=== PATIENT | female | born 1980 | race Two or more races ===

== ENCOUNTER 2016-07-19 17:29 | Inpatient (IN) | payer OTHER ==
[~2016-07-19] VITALS: Ht 152.4 cm; Wt 81.8 kg
[~2016-07-19 17:29] MED LIST: IBUP-1222 PO; OXYC-302 PO
[2016-07-19 18:05] VITALS: BP 183/103
[2016-07-19] MEDS ORDERED: LEVO75TA PO (18:12)
[2016-07-19] MEDS ORDERED: LABE100T3 PO (18:12)
[2016-07-19 18:29] LABS: BLOOD UREA NITROGEN 17 mg/dL (7-18)
[2016-07-19 18:33] LABS: ASPARTATE AMINO TRANSFERASE 161 U/L (15-37)
[2016-07-19] MEDS ORDERED: MAGNESIUM SULF. PMX 20GM/500ML 500 ML IV ONE (18:52)
[2016-07-19] MEDS ORDERED: MAGNESIUM SULFATE PMX 4GM/100M 100 ML ONE (18:53)
[2016-07-19] MEDS ORDERED: MAGNESIUM SULFATE PMX 4GM/100M 100 ML IVPB ONE (19:00)
[2016-07-19] MEDS ORDERED: OXYcodone/APAP 5/325MG TABLET PO PRN (19:00)
[2016-07-19] MEDS: LACTATED RINGERS 1,000 ML IV PRN (19:04)
[2016-07-19 19:32] VITALS: BP 163/86
[2016-07-19] MEDS ORDERED: OXYcodone/APAP 5/325MG TABLET ONE (19:49)
[2016-07-19] MEDS ORDERED: DOCUSATE 100 MG CAPSULE ONE (19:50)
[2016-07-19] MEDS: MAGNESIUM SULF. PMX 20GM/500ML 500 ML IV PRN (19:53)
[2016-07-19] MEDS: OXYcodone/APAP 5/325MG TABLET PO PRN (19:56)
[2016-07-20] VITALS: BP 142/82
[2016-07-20] MEDS ORDERED: OXYcodone/APAP 5/325MG TABLET ONE ×2 (03:14→11:20)
[2016-07-20] MEDS: OXYcodone/APAP 5/325MG TABLET PO PRN ×2 (03:16→11:22)
[2016-07-20] MEDS ORDERED: MAGNESIUM SULF. PMX 20GM/500ML 500 ML IV ONE ×2 (05:00→16:02)
[2016-07-20] MEDS: LACTATED RINGERS 1,000 ML IV PRN ×2 (05:08→18:48)
[2016-07-20] MEDS: MAGNESIUM SULF. PMX 20GM/500ML 500 ML IV PRN ×2 (05:10→16:07)
[2016-07-20] MEDS ORDERED: LABETALOL 100 MG TABLET ONE ×2 (06:58→18:12)
[2016-07-20] MEDS ORDERED: DOCUSATE 100 MG CAPSULE ONE ×2 (06:59→22:01)
[2016-07-20] MEDS: DOCUSATE 50 MG/5 ML, 10ML UDC PO PRN ×2 (07:03→22:08)
[2016-07-20 07:10] VITALS: BP 173/89
[2016-07-20 07:15] LABS: BLOOD UREA NITROGEN 12 mg/dL (7-18)
[2016-07-20 07:18] LABS: ASPARTATE AMINO TRANSFERASE 209 U/L (15-37)
[2016-07-20] MEDS ORDERED: LABETALOL 100 MG TABLET PO SCH (08:00)
[2016-07-20] MEDS: niFEDipine ER 30 MG TABLET.ER PO SCH (08:04)
[2016-07-20] MEDS ORDERED: IBUPROFEN 600 MG TABLET ONE (15:46)
[2016-07-20] MEDS: IBUPROFEN 600 MG TABLET PO PRN (15:50)
[2016-07-20] MEDS: LABETALOL 100 MG TABLET PO SCH (18:18)
[2016-07-21] MEDS ORDERED: MAGNESIUM SULF. PMX 20GM/500ML 500 ML IV ONE (02:45)
[2016-07-21] MEDS: MAGNESIUM SULF. PMX 20GM/500ML 500 ML IV PRN (02:50)
[2016-07-21 05:59] LABS: BLOOD UREA NITROGEN 12 mg/dL (7-18)
[2016-07-21 06:09] LABS: ASPARTATE AMINO TRANSFERASE 123 U/L (15-37)
[2016-07-21 07:30] VITALS: BP 159/76
[2016-07-21] MEDS: LABETALOL 100 MG TABLET PO SCH (08:01)
[2016-07-21] MEDS: LACTATED RINGERS 1,000 ML IV PRN (08:13)
[2016-07-21] MEDS ORDERED: LABETALOL 200 MG TABLET PO SCH (08:18)
[2016-07-21] MEDS ORDERED: PRENATAL VIT/IRON/FA 1 EACH TABLET ONE (09:01)
[2016-07-21] MEDS: niFEDipine ER 30 MG TABLET.ER PO SCH (09:05)
[2016-07-21] MEDS ORDERED: IBUPROFEN 600 MG TABLET ONE (09:44)
[2016-07-21] MEDS: IBUPROFEN 600 MG TABLET PO PRN (09:46)
[2016-07-21] MEDS ORDERED: OXYcodone/APAP 5/325MG TABLET ONE (13:22)
[2016-07-21] MEDS: OXYcodone/APAP 5/325MG TABLET PO PRN (13:24)
[2016-07-21] MEDS ORDERED: NIFE30TA15 PO (18:48)
[2016-07-21] MEDS ORDERED: LABE200T3 PO (18:49)
[2016-07-21] MEDS ORDERED: DOCUSATE 100 MG CAPSULE PO SCH (21:00)
[2016-07-22] MEDS ORDERED: PRENATAL VIT/IRON/FA 1 EACH TABLET PO SCH (09:00)
== END 2016-07-21 19:12 | disposition home or self-care (01) | DRG 776 ==
LOC: LDOP 17:29 → LDIP 18:50
PROVIDERS: ADMIT Obstetrics & Gynecology; ATTEND Obstetrics & Gynecology
PROC: 0T9B70Z Drainage of Bladder with Drainage Device, Via Natural or Artificial Opening (ICD-10-PCS; principal; 2016-07-19)
DX: O10.93 Unspecified pre-existing hypertension complicating the puerperium (principal); E28.2 Polycystic ovarian syndrome; K08.409 Partial loss of teeth, unspecified cause, unspecified class; O13.5 Gestational [pregnancy-induced] hypertension without significant proteinuria, complicating the puerperium; Z98.51 Tubal ligation status; Z91.048 Other nonmedicinal substance allergy status
CPT/HCPCS: 36415; 80053; 81003; 82570; 83735; 84156; 84550; 85025; J3475; J7120

== ENCOUNTER → 2020-02-05 | Outpatient (CLI) | payer OTHER ==
[~2020-02-05] MED LIST changes: +ASCO100018 PO; +CALC200T3 PO; +CHOL10003 PO; +LABE100T6 PO; +LABE200T6 PO; +LEVO75TA PO; +LORA10TA75 PO; +MULT-516 PO; +NIFE-7 PO; +OLME20TA17 PO
[2020-02-05 11:50] LABS: BASOPHILS % (AUTO) 1 % (0-1); EOSINOPHILS % (AUTO) 2 % (1-7); LYMPHOCYTES % (AUTO) 37 % (22-44); MEAN CORPUSCULAR HEMOGLOBIN 28.7 pg (27.0-34.8); MEAN CORPUSCULAR HGB CONC 32.8 g/dL (32.4-35.8); MEAN PLATELET VOLUME 7.9 fL (7.4-10.4); MONOCYTES % (AUTO) 9 % (2-9); NEUTROPHILS % (AUTO) 52 % (42-75); PLATELET COUNT 315 x10^3/uL (130-400); RED BLOOD COUNT 4.73 x10^6/uL (3.82-5.3); RED CELL DISTRIBUTION WIDTH 13.2 % (9.6-15.2)
[2020-02-05 11:53] LABS: MD NO
[2020-02-05 11:55] LABS: ALBUMIN 3.9 g/dL (3.4-5.0); ANION GAP 4 mmol/L (5-15); CALCIUM 9.1 mg/dL (8.5-10.1); CHLORIDE 105 mmol/L (98-107); CREATININE 1.04 mg/dL (0.55-1.02)
[2020-02-05 12:00] LABS: ALANINE AMINOTRANSFERASE 17 U/L (12-78); ALKALINE PHOSPHATASE 80 U/L (45-117); BILIRUBIN,TOTAL 0.4 mg/dL (0.2-1.0); TOTAL PROTEIN 8.7 g/dL (6.4-8.2)
[2020-02-05 12:08] LABS: HCG UR SG 1.018 (1.003-1.030); MICROSCOPIC NOT IND
== END | disposition home or self-care (01) ==
LOC: STAR 10:13
PROVIDERS: ATTEND Obstetrics & Gynecology
DX: Z01.812 Encounter for preprocedural laboratory examination (principal); Z20.828 Contact with and (suspected) exposure to other viral communicable diseases; Q89.8 Other specified congenital malformations
CPT/HCPCS: 36415; 80053; 81003; 81025; 85025; 87635

== ENCOUNTER 2020-02-09 05:33 | Day surgery (SDC) | payer OTHER ==
[~2020-02-09] VITALS: Ht 154.9 cm; Wt 87.0 kg
[2020-02-09 06:27] VITALS: BP 148/96
[2020-02-09] MEDS ORDERED: ACETAMINOPHEN 500 MG TABLET PO ONE (06:30)
[2020-02-09] MEDS ORDERED: LACTATED RINGERS 1,000 ML IV SCH (06:30)
[2020-02-09] MEDS ORDERED: CHLORHEXIDINE 15 ML UDC MM ONE (06:30)
[2020-02-09] MEDS ORDERED: LIDOCAINE-MPF 1%, 2ML INFIL ONE (06:30)
[2020-02-09 06:49] LABS: HCG UR SG 1.025 (1.003-1.030)
[2020-02-09] MEDS ORDERED: EPINEPHRINE 1 MG/ML, 1ML ONE (06:56)
[2020-02-09] MEDS ORDERED: BUPIVACAINE/PF 0.25% ONE (06:56)
[2020-02-09] MEDS ORDERED: BUPIVACAINE/PF 0.5% ONE (06:56)
[2020-02-09] MEDS ORDERED: MIDAZOLAM 1 MG/ML, 2ML ONE (07:09)
[2020-02-09] MEDS ORDERED: FENTANYL PF 100 MCG/2ML ONE (07:10)
[2020-02-09] MEDS ORDERED: DIPHENHYDRAMINE 50 MG/ML, 1ML IVPush PRN (07:30)
[2020-02-09] MEDS ORDERED: HYDROmorphone 1 MG/ML, 1ML INJ IVPush PRN (07:30)
[2020-02-09] MEDS ORDERED: LABETALOL 5MG/ML, 20ML IV PRN (07:30)
[2020-02-09] MEDS ORDERED: HYDROcodone/APAP 7.5-325MG/15ML UDC PO PRN (07:30)
[2020-02-09] MEDS ORDERED: hydrALAzine 20 MG/ML, 1ML IV PRN (07:30)
[2020-02-09] MEDS ORDERED: PROMETHAZINE 25 MG/ML, 1ML IVPush PRN (07:30)
[2020-02-09] MEDS ORDERED: MEPERIDINE/PF 25MG/0.5ML IVPush PRN (07:30)
[2020-02-09] MEDS ORDERED: FENTANYL PF 100 MCG/2ML IV PRN (07:30)
[2020-02-09] MEDS ORDERED: HALOPERIDOL 5 MG/ML IV PRN (07:30)
[2020-02-09] MEDS ORDERED: KETOROLAC 30 MG/1 ML ONE (07:34)
[2020-02-09] MEDS ORDERED: CEFAZOLIN 1,000 MG ONE (07:52)
[2020-02-09] MEDS ORDERED: ONDANSETRON 2MG/ML, 2ML ONE (07:52)
[2020-02-09] MEDS ORDERED: PROPOFOL 10 MG/ML, 20ML ONE (07:52)
[2020-02-09] MEDS ORDERED: DEXAMETHASONE 4 MG/ML, 1ML ONE (07:52)
== END 2020-02-09 09:50 | disposition home or self-care (01) ==
LOC: OUT 05:33
PROVIDERS: ATTEND Obstetrics & Gynecology
DX: D06.7 Carcinoma in situ of other parts of cervix (principal); N72 Inflammatory disease of cervix uteri; I10 Essential (primary) hypertension; E03.9 Hypothyroidism, unspecified; Z88.8 Allergy status to other drugs, medicaments and biological substances; Z98.890 Other specified postprocedural states; Z79.899 Other long term (current) drug therapy; Z82.49 Family history of ischemic heart disease and other diseases of the circulatory system; Z72.89 Other problems related to lifestyle
CPT/HCPCS: 57520; 81025; 88305; 88307; J0171; J0690; J1100; J1885; J2250; J2405; J2704; J3010; J7120

== ENCOUNTER → 2020-07-27 | Outpatient (CLI) | payer OTHER ==
[~2020-07-27] MED LIST changes: -OXYC-302 PO; +OXYC1TAB14 PO
[2020-07-27 08:01] LABS: ANION GAP 4 mmol/L (5-15); CALCIUM 8.7 mg/dL (8.5-10.1); CHLORIDE 106 mmol/L (98-107); CREATININE 0.96 mg/dL (0.55-1.02)
[2020-07-27 08:02] LABS: ALANINE AMINOTRANSFERASE 23 U/L (12-78); CHOLESTEROL, TOTAL 151 mg/dL (140-239)
[2020-07-27 08:12] LABS: ALKALINE PHOSPHATASE 73 U/L (45-117); BILIRUBIN,TOTAL 0.2 mg/dL (0.2-1.0); CHOL/HDL RATIO 3.7; HDL CHOL % 27 % (28-40); HDL CHOLESTEROL (DIRECT) 41 mg/dL (40-60); LDL CHOLESTEROL,CALCULATED 97 mg/dL (54-169); LDL/HDL RATIO 2.4 (0.5-3.0); TOTAL PROTEIN 8.5 g/dL (6.4-8.2); TRIGLYCERIDES 64 mg/dL (50-200); VLDL CHOLESTEROL 13 mg/dL (0-25)
== END | disposition home or self-care (01) ==
LOC: LAB 07:21
PROVIDERS: ATTEND Family Medicine
DX: I10 Essential (primary) hypertension (principal); E03.9 Hypothyroidism, unspecified
CPT/HCPCS: 36415; 80053; 80061; 82043; 84443

== ENCOUNTER 2020-11-28 10:23 | Emergency (ER) | payer OTHER ==
[~2020-11-28] VITALS: Ht 154.9 cm; Wt 79.7 kg
[~2020-11-28 10:23] MED LIST changes: +OXYC1TAB12 PO; -OXYC1TAB14 PO
[2020-11-28 10:31] VITALS: BP 150/98
== END 2020-11-28 11:01 | disposition home or self-care (01) ==
LOC: ED 10:41
DX: J06.9 Acute upper respiratory infection, unspecified (principal); Z20.822 Contact with and (suspected) exposure to COVID-19; I10 Essential (primary) hypertension
CPT/HCPCS: 99283; U0003; U0005